=== PATIENT | male | born 1985 | race African-American/Black ===

== ENCOUNTER 2024-01-26 12:28 | Emergency (ER) | payer MEDICAID ==
[~2024-01-26] VITALS: Ht 190.5 cm; Wt 105.0 kg
[2024-01-26 12:31] VITALS: O2SAT 99
[2024-01-26 13:10] LABS: BASOPHILS % 1.1 % (0.0-2.0); DIFFERENTIAL COMMENT 0; HEMATOCRIT. 44.4 % (42.0-52.0); HEMOGLOBIN. 15.1 g/dL (14.0-18.0); MEAN CORPUSCULAR HEMOGLOBIN 30.5 pg (28.0-32.0); MEAN CORPUSCULAR VOLUME 89.6 fL (80.0-94.0); MEAN PLATELET VOLUME 9.1 fl (7.4-10.4); MONOCYTES % 6.7 % (2.0-8.0); NEUTROPHILS % 53.2 % (40.0-76.0); PLATELET 290 x1000/uL (130-400); RED BLOOD CELL COUNT 4.96 mill/uL (4.7-6.1); RED CELL DISTRIBUTION WIDTH 13.5 % (11.6-14.6); WHITE BLOOD COUNT 6.1 x1000/uL (4.5-11.0)
[2024-01-26] MEDS: AMLODIPINE 5MG TABLET PO ONE (13:10)
[2024-01-26] MEDS: HYDRALAZINE 20MG/ML VIAL IV ONE (13:10)
[2024-01-26 13:13] LABS: CHLORIDE 107 mEq/L (98-107); POTASSIUM 3.2 mEq/L (3.5-5.1); SODIUM 142 mEq/L (136-145)
[2024-01-26 13:15] LABS: CALCIUM 9.7 mg/dL (8.7-10.4); CARBON DIOXIDE 27 mEq/L (21-32)
[2024-01-26 13:20] LABS: CREATININE 1.1 mg/dL (0.6-1.3); ETHANOL BLOOD 24 mg/dL (<10); GLUCOSE 90 mg/dL (70-105); UREA NITROGEN BLOOD 6 mg/dL (9-23)
[2024-01-26 13:21] LABS: TROPONIN I HIGH SENSITIVITY 17 ng/L (3.0-53)
[2024-01-26 13:22] LABS: ALANINE AMINOTRANSFERASE 30 IU/L (10-49); ASPARTATE AMINOTRANSFERASE 35 IU/L (<34); BILIRUBIN DIRECT 0.2 mg/dL (<=3.0); BILIRUBIN TOTAL 0.7 mg/dL (0.1-1.0); PROTEIN TOTAL 8.5 g/dL (6.0-8.3)
[2024-01-26] MEDS ORDERED: AMLO10TA80 MT (13:53)
[2024-01-26 13:57] LABS: CLARITY URINE CLEAR (CLEAR); COLOR URINE YELLOW (YELLOW); GLUCOSE URINE NEGATIVE (NEGATIVE); KETONES URINE NEGATIVE (NEGATIVE); LEUKOCYTE ESTERASE URINE NEGATIVE (NEGATIVE); NITRITE URINE NEGATIVE (NEGATIVE); OCCULT BLOOD URINE NEGATIVE (NEGATIVE); PROTEIN URINE 1+ (NEGATIVE); SPECIFIC GRAVITY URINE 1.018 (1.005-1.030); UROBILINOGEN URINE 0.2 E.U./dL (0.2-1.0)
[2024-01-26 14:00] VITALS: BP 178/115; PULSE 82; RESP 14; TEMP 36.89184; O2SAT 99
[2024-01-26] MEDS: POTASSIUM CHLORIDE 20MEQ TABLET SR PO NR (14:03)
[2024-01-26 14:13] LABS: BACTERIA URINE NONE SEEN; RBC URINE NONE SEEN /hpf (0-2); SQUAMOUS EPITHELIAL CELL URINE NONE SEEN /lpf (RARE/1+); WBC URINE 0-2 /hpf (0-2)
[2024-01-26 14:14] LABS: YEAST URINE NONE SEEN
[2024-01-26 14:16] LABS: *AMPHETAMINES SCREEN URINE NEGATIVE (NEGATIVE); *BARBITURATES SCREEN URINE NEGATIVE (NEGATIVE); *BENZODIAZEPINES SCREEN URINE NEGATIVE (NEGATIVE); *COCAINE SCREEN URINE PRESUMPTIVE POSITIVE (NEGATIVE); CANNABINOID URINE SCREEN NEGATIVE (NEGATIVE); ECSTASY MDMA SCREEN URINE NEGATIVE (NEGATIVE); METHADONE URINE SCREEN NEGATIVE (NEGATIVE); OPIATES URINE SCREEN NEGATIVE (NEGATIVE); PHENCYCLIDINE URINE SCREEN NEGATIVE (NEGATIVE)
== END 2024-01-26 15:07 | disposition home or self-care (01) ==
LOC: ER 12:38
DX: I10 Essential (primary) hypertension (principal); F14.10 Cocaine abuse, uncomplicated; F17.200 Nicotine dependence, unspecified, uncomplicated; Z90.49 Acquired absence of other specified parts of digestive tract; Z91.148 Patient's other noncompliance with medication regimen for other reason
CPT/HCPCS: 80076; 80305; 80048; 81003; 80320; 83880; 83690; 85025; 85610; 84484; 36415; 71045; 93005; 96374; 99285; J0360; Z7610; G0480